=== PATIENT | female | born 1955 | race Caucasian/White ===

== ENCOUNTER 2018-06-03 13:57 | Emergency (ER) | payer OTHER ==
[2018-06-03] MEDS ORDERED: Acetaminophen TAB* 325 MG PO ONE (16:59)
--- NOTE | 2018-06-03 17:08 | RAD ---
Indication: Right knee injury. 2 views of the right knee demonstrates joint effusion. No obvious fracture is noted. Patella is intact. IMPRESSION: Joint effusion. No fracture is noted.
--- NOTE | 2018-06-03 17:08 | ED ---
Lower Extremity - HPI Summary HPI Summary: 62-year-old female presents with right knee injury today. States that she was with her on the floor and got caught in some cords and twisted her right knee. She also states she landed on her left shoulder. She states she is full range of motion of her left shoulder. No pain besides the right knee. States she is only pain when she ambulates. medial aspect of her right knee. No previous fracture to the area. Has not taking anything for pain. No numbness or tingling. - History of Current Complaint Chief Complaint: EDExtremityLower Stated Complaint: RT KNEE INJURY Time Seen by Provider: 06/03/18 16:37 Pain Intensity: 3 - Allergies/Home Medications Allergies/Adverse Reactions: Allergies Allergy/AdvReac Type Severity Reaction Status Date / Time oxycodone [From Percocet] AdvReac GI Upset Verified 06/03/18 17:14 PMH/Surg Hx/FS Hx/Imm Hx Endocrine/Hematology History: Denies: Hx Anticoagulant Therapy Cardiovascular History: Denies: Hx Pacemaker/ICD Infectious Disease History: No Infectious Disease History: Denies: Traveled Outside the [place] in Last 30 Days - Family History Known Family History: Negative: Diabetes - Social History Substance Use Type: Reports: None Smoking Status (MU): Never Smoked Tobacco Review of Systems Negative: Fever Negative: Chest Pain Negative: Shortness Of Breath Positive: Myalgia - right knee pain All Other Systems Reviewed And Are Negative: Yes Physical Exam Triage Information Reviewed: Yes Vital Signs On Initial Exam: Initial Vitals Temp Pulse Resp BP Pulse Ox 98.5 F 74 14 102/85 96 06/03/18 14:23 06/03/18 14:23 06/03/18 14:23 06/03/18 14:23 06/03/18 14:23 Vital Signs Reviewed: Yes Appearance: Positive: Well-Appearing Skin: Positive: Warm, Dry Head/Face: Positive: Normal Head/Face Inspection Eyes: Positive: Normal, Conjunctiva Clear Respiratory/Lung Sounds: Positive: Clear to Auscultation, Breath Sounds Present Cardiovascular: Positive: Normal, RRR Musculoskeletal: Positive: Strength/ROM Intact - right knee, Other - tenderness right knee, good pulses, neg ballotment, neg anterior drawer and bruno. Negative: Edema Right Neurological: Positive: Normal Psychiatric: Positive: Normal Diagnostics - Vital Signs Vital Signs Temp Pulse Resp BP Pulse Ox 06/03/18 14:23 98.5 F 74 14 102/85 96 - Laboratory Lab Statement: Any lab studies that have been ordered have been reviewed, and results considered in the medical decision making process. - Radiology knee Radiology Interpretation Completed By: Radiologist Summary of Radiographic Findings: IMPRESSION: Joint effusion. No fracture is noted. Lower Extremity Course/Dx - Course Course Of Treatment: 62-year-old female presents with right knee injury today. States that she was with her on the floor and got caught in some cords and twisted her right knee. She also states she landed on her left shoulder. She states she is full range of motion of her left shoulder. No pain besides the right knee. States she is only pain when she ambulates. medial aspect of her right knee. No previous fracture to the area. Has not taking anything for pain. No numbness or tingling. On exam tenderness over the medial aspect of right knee. Neurovascular intact. X-ray just shows joint effusion. Told to treat with ice. Told that does not improve to follow-up with orthopedic. Patient understands agrees with plan. - Diagnoses Differential Diagnosis/HQI/PQRI: Positive: Fracture (Closed), Sprain, Strain Provider Diagnoses: Right knee injury Discharge - Sign-Out/Discharge Documenting (check all that apply): Patient Departure - Discharge Plan Condition: Good Disposition: HOME Patient Education Materials: R.I.C.E. Treatment (ED) Referrals: Stephany Soria [Primary Care Provider] - Richard Melton MD [Medical Doctor] - Additional Instructions: Take Tylenol every 6 hours as needed for pain Apply ice, rest, elevate Follow up with ortho if no improvement Return to ED if develop any new or worsening symptoms - Billing Disposition and Condition Condition: GOOD Disposition: Home
[2018-06-03 17:54] VITALS: BP 121/56
== END 2018-06-03 17:52 | disposition home or self-care (01) ==
LOC: ED 13:57
DX: S89.91XA Unspecified injury of right lower leg, initial encounter (principal); Y92.9 Unspecified place or not applicable
CPT/HCPCS: 99281; A9270-GY

== ENCOUNTER 2020-08-31 09:33 | Inpatient (IN) ==
[~2020-08-31 09:33] MED LIST: Buffered Lidocaine 1% SYRIN 1 ml INTRADERM ONE; Lactated Ringers 1000 ml BAG 1,000 ML IV SCH
[2020-08-31] MEDS ORDERED: Heparin 5000 UNITS/ML 1 mL VIAL ONE (09:46)
[2020-08-31] MEDS ORDERED: ceFAZolin 2 GM PREMIX 2 GM/50 ML BAG ONE (09:46)
[2020-08-31] MEDS ORDERED: fentaNYL 100 mcg/2 ml 50 MCG/ML VIAL ONE ×2 (10:54→15:56)
[2020-08-31] MEDS ORDERED: Midazolam 2 mg/2 ml VIAL 1 mg/ml 2 ml VIAL (2 mg) ONE (10:55)
[2020-08-31] MEDS ORDERED: Rocuronium 50 mg VIAL 10 mg/ml 5 ml VIAL (50 mg) ONE ×2 (10:55→13:57)
[2020-08-31] MEDS ORDERED: Bupivacaine 0.25% SDV 30 ML ONE (11:18)
[2020-08-31] MEDS ORDERED: Lidocaine 2% PF 5 ML VIAL ONE (11:34)
[2020-08-31] MEDS ORDERED: Metoclopramide 5 MG/ML VIAL (10 mg) ONE (11:34)
[2020-08-31] MEDS ORDERED: Dexamethasone IV 4 MG/ML VIAL 1 ml VIAL ONE (11:34)
[2020-08-31] MEDS ORDERED: Ondansetron 4 mg VIAL 2 MG/ML 2 ml VIAL ONE (11:34)
[2020-08-31] MEDS ORDERED: Propofol 10 MG/ML 20 ML BTL ONE (11:34)
[2020-08-31] MEDS ORDERED: HYDROmorphone 1 MG/1 ML SYRINGE ONE ×3 (11:35→19:57)
[2020-08-31] MEDS ORDERED: DiMENhydriNATE IV 50 mg/ml 1 ml VIAL IV PUSH PRN (11:57)
[2020-08-31] MEDS ORDERED: HYDROmorphone 1 MG/1 ML SYRINGE IV PRN (11:57)
[2020-08-31] MEDS ORDERED: Naloxone 0.4 mg VIAL 0.4 mg/ml 1 ml VIAL IV PRN (11:57)
[2020-08-31] MEDS ORDERED: Ondansetron 4 mg VIAL 2 MG/ML 2 ml VIAL IV PRN (11:57)
[2020-08-31] MEDS ORDERED: Acetaminophen IV 1 GM/100ML 1,000 MG/100 ML VIAL IVPB ONE (11:57)
[2020-08-31] MEDS ORDERED: Levalbuterol 1.25MG/0.5ML NEB.SOL INH PRN (11:57)
[2020-08-31] MEDS ORDERED: Sugammadex 500 MG/5 ML 5 ml VIAL IV PUSH ONE (15:09)
[2020-08-31] MEDS ORDERED: HYDROmorphone 0.5 MG/0.5 ML SYRINGE IV SLOW PU PRN (15:35)
[2020-08-31] MEDS ORDERED: Acetaminophen IV 1 GM/100ML 100 ML ONE (15:56)
[2020-08-31] MEDS: fentaNYL 100 mcg/2 ml 50 MCG/ML VIAL IV PRN ×3 (15:57→16:54)
[2020-08-31] MEDS: Lactated Ringers 1000 ml BAG 1,000 ML IV SCH (18:26)
[2020-08-31] MEDS: Heparin 5000 UNITS/ML 1 mL VIAL SUBCUT SCH (23:01)
[2020-08-31] MEDS: HYDROmorphone 1 MG/1 ML SYRINGE IV SLOW PU PRN (23:02)
[2020-09-01] MEDS: HYDROmorphone 1 MG/1 ML SYRINGE IV SLOW PU PRN ×3 (02:06→14:21)
[2020-09-01 04:22] LABS: ABS Lymphocytes 0.8 10^3/ul (1.0-4.8); ABS Monocytes 1.4 10^3/ul (0-0.8); ABS Neutrophils 17.8 10^3/ul (1.5-7.7); Hematocrit 41 % (35-47); Hemoglobin 14.1 g/dL (12.0-16.0); Mean Corpuscular HGB Conc 34 g/dL (31-36); Mean Corpuscular Hemoglobin 32 pg (27-31); Mean Corpuscular Volume 94 fL (80-97); Mean Platelet Volume 6.6 fL (7.4-10.4); Platelet Count 356 10^3/uL (150-450); Red Blood Count 4.41 10^6 /uL (3.70-4.87); Red Cell Distribution Width 13 % (10-15); White Blood Count 20.1 10^3/uL (3.5-10.8)
[2020-09-01 04:37] LABS: Albumin 4.3 g/dL (3.2-5.2); Albumin/Globulin Ratio 1.5 (1-3); BUN/Creatinine Ratio 23.4 (8-20); C Reactive Protein 72.88 mg/L (<8.01); Calcium 9.1 mg/dL (8.6-10.3); EGFR Non-African American 60.3 (>60); Globulin 2.8 g/dL (2-4); Potassium 4.6 mmol/L (3.5-5.0); Total Bilirubin 0.6 mg/dL (0.2-1.0); Total Protein 7.1 g/dL (6.4-8.9)
[2020-09-01] MEDS: Lactated Ringers 1000 ml BAG 1,000 ML IV SCH ×2 (04:39→22:14)
[2020-09-01] MEDS: Heparin 5000 UNITS/ML 1 mL VIAL SUBCUT SCH ×3 (07:46→21:01)
[2020-09-01 19:09] LABS: ABS Lymphocytes 0.5 10^3/ul (1.0-4.8); ABS Monocytes 0.5 10^3/ul (0-0.8); ABS Neutrophils 11.6 10^3/ul (1.5-7.7); Eosinophil % 0.1 %; Hematocrit 41 % (35-47); Hemoglobin 13.7 g/dL (12.0-16.0); Lymphocyte % 4.2 %; Mean Corpuscular HGB Conc 34 g/dL (31-36); Mean Corpuscular Hemoglobin 32 pg (27-31); Mean Corpuscular Volume 94 fL (80-97); Mean Platelet Volume 6.7 fL (7.4-10.4); Platelet Count 319 10^3/uL (150-450); Red Blood Count 4.34 10^6 /uL (3.70-4.87); Red Cell Distribution Width 13 % (10-15); White Blood Count 12.7 10^3/uL (3.5-10.8)
[2020-09-01 19:27] LABS: BUN/Creatinine Ratio 24.4 (8-20); Calcium 8.8 mg/dL (8.6-10.3); EGFR African American 80.9 (>60); EGFR Non-African American 66.9 (>60); Potassium 3.8 mmol/L (3.5-5.0)
[2020-09-01] MEDS ORDERED: NS 0.9% 500 ml BAG 500 ML IV ONE (20:32)
[2020-09-02] MEDS: Ondansetron 4 mg VIAL 2 MG/ML 2 ml VIAL IV PRN (05:01)
[2020-09-02] MEDS: HYDROmorphone 1 MG/1 ML SYRINGE IV SLOW PU PRN ×2 (05:01→08:08)
[2020-09-02] MEDS: Heparin 5000 UNITS/ML 1 mL VIAL SUBCUT SCH ×4 (05:54→23:27)
[2020-09-02] MEDS: Lactated Ringers 1000 ml BAG 1,000 ML IV SCH ×3 (05:54→23:52)
[2020-09-02 06:02] LABS: ABS Lymphocytes 1.4 10^3/ul (1.0-4.8); ABS Monocytes 0.7 10^3/ul (0-0.8); ABS Neutrophils 13.5 10^3/ul (1.5-7.7); Hematocrit 40 % (35-47); Hemoglobin 13.3 g/dL (12.0-16.0); Mean Corpuscular HGB Conc 33 g/dL (31-36); Mean Corpuscular Hemoglobin 32 pg (27-31); Mean Corpuscular Volume 95 fL (80-97); Mean Platelet Volume 7.1 fL (7.4-10.4); Platelet Count 307 10^3/uL (150-450); Red Blood Count 4.21 10^6 /uL (3.70-4.87); Red Cell Distribution Width 13 % (10-15); White Blood Count 15.7 10^3/uL (3.5-10.8)
[2020-09-02 08:00] LABS: Albumin 3.6 g/dL (3.2-5.2); Albumin/Globulin Ratio 1.4 (1-3); EGFR African American 94.7 (>60); EGFR Non-African American 78.3 (>60); Globulin 2.5 g/dL (2-4); Potassium 4.1 mmol/L (3.5-5.0); Total Bilirubin 1.1 mg/dL (0.2-1.0); Total Protein 6.1 g/dL (6.4-8.9)
[2020-09-02] MEDS ORDERED: HYDROmorphone 0.5 MG/0.5 ML SYRINGE IV SLOW PU PRN (09:25)
[2020-09-02] MEDS: Acetaminophen IV 1 GM/100ML 100 ML IVPB SCH ×2 (14:32→21:49)
[2020-09-02 15:09] LABS: Urine Appearance Turbid; Urine Bilirubin Negative (Negative); Urine Blood Negative (Negative); Urine Color Amber; Urine Glucose Negative (Negative); Urine Ketones Negative (Negative); Urine Nitrite Negative (Negative); Urine Protein 1+(30 mg/dL) (Negative); Urine Specific Gravity 1.025 (1.010-1.030); Urine Urobilinogen Negative (Negative)
[2020-09-02 15:22] LABS: Urine Bacteria Absent (Absent); Urine Red Blood Cell Trace(0-2/hpf) (Absent); Urine Squamous Epithelial Cell Present (Absent); Urine White Blood Cell Trace(0-5/hpf) (Absent)
[2020-09-02] MEDS ORDERED: Iohexol 350 (CONTRAST) 500 ML MDV IV ONE (18:13)
[2020-09-02 20:28] LABS: ABS Basophils 0.1 10^3/ul (0-0.2); ABS Lymphocytes 0.5 10^3/ul (1.0-4.8); ABS Monocytes 0.6 10^3/ul (0-0.8); ABS Neutrophils 11.8 10^3/ul (1.5-7.7); Eosinophil % 0.2 %; Hematocrit 37 % (35-47); Hemoglobin 12.7 g/dL (12.0-16.0); Lymphocyte % 4.2 %; Mean Corpuscular HGB Conc 34 g/dL (31-36); Mean Corpuscular Hemoglobin 32 pg (27-31); Mean Corpuscular Volume 93 fL (80-97); Mean Platelet Volume 6.8 fL (7.4-10.4); Platelet Count 300 10^3/uL (150-450); Red Blood Count 4.03 10^6 /uL (3.70-4.87); Red Cell Distribution Width 13 % (10-15)
[2020-09-02 20:40] LABS: Albumin 3.2 g/dL (3.2-5.2); Albumin/Globulin Ratio 1.2 (1-3); BUN/Creatinine Ratio 21.2 (8-20); Calcium 8.7 mg/dL (8.6-10.3); EGFR Non-African American 67.8 (>60); Globulin 2.7 g/dL (2-4); Potassium 4.3 mmol/L (3.5-5.0); Total Bilirubin 1.2 mg/dL (0.2-1.0); Total Protein 5.9 g/dL (6.4-8.9)
[2020-09-02] MEDS ORDERED: Piperacillin/Tazobac ADVAN 3.375 GM in NS 0.9% 100 ml BAG 100 ML IVPB ONE (20:54)
[2020-09-02] MEDS ORDERED: Lactated Ringers 1000 ml BAG 1,000 ML IV ONE (20:55)
[2020-09-02] MEDS ORDERED: Zosyn per Pharmacy NOTE FOLLOW UP SCH (21:00)
[2020-09-03] MEDS ORDERED: Midazolam 5 mg/5 ml VIAL 1 mg/ml 5 ml VIAL (5 mg) ONE (00:45)
[2020-09-03] MEDS ORDERED: fentaNYL 250 mcg/5 ml 50 MCG/ML 5 ml VIAL (250 MCG) ONE ×2 (00:45→20:53)
[2020-09-03] MEDS ORDERED: Rocuronium 50 mg VIAL 10 mg/ml 5 ml VIAL (50 mg) ONE ×2 (00:47→02:46)
[2020-09-03] MEDS ORDERED: Bupivacaine 0.25% SDV 30 ML ONE (00:49)
[2020-09-03] MEDS ORDERED: ZOSYN 3.375 GM Q8H per EXTENDED INFUSION IV SCH (01:00)
[2020-09-03] MEDS ORDERED: Ketamine HCL 50 mg/ml 10 ml VIAL (500 MG) ONE (02:08)
[2020-09-03] MEDS ORDERED: Phenylephrine 40 mcg/mL 10mL (400mcg) SYRINGE ONE (02:36)
[2020-09-03] MEDS ORDERED: Lidocaine 2% PF 5 ML VIAL ONE (02:36)
[2020-09-03] MEDS ORDERED: Propofol 10 MG/ML 20 ML BTL ONE (02:36)
[2020-09-03] MEDS ORDERED: Succinylcholine 200 mg VIAL 20 mg/ml 10 ml VIAL (200 mg) ONE (02:36)
[2020-09-03] MEDS ORDERED: EPHEDrine (Pressors) 50 MG/ML VIAL ONE (02:36)
[2020-09-03] MEDS ORDERED: Dexamethasone IV 4 MG/ML VIAL 1 ml VIAL ONE (02:36)
[2020-09-03] MEDS ORDERED: Ondansetron 4 mg VIAL 2 MG/ML 2 ml VIAL ONE (02:36)
[2020-09-03] MEDS ORDERED: Phenylephrine IV 10 MG/ML 1 ml VIAL ONE (02:36)
[2020-09-03] MEDS ORDERED: Propofol 10 mg/ml 100 ML BTL 100 ML ONE (03:43)
[2020-09-03] MEDS: Propofol 10 mg/ml 100 ML BTL 100 ML IV SCH ×4 (04:28→17:53)
[2020-09-03] MEDS: Propofol* 20 ML VIAL - FOR IV LINE PRIMING ONLY SCH ×2 (04:33→17:53)
[2020-09-03] MEDS: Lactated Ringers 1000 ml BAG 1,000 ML IV SCH ×3 (04:35→21:52)
[2020-09-03] MEDS: Chlorhexidine MOUTHWASH 0.12% 15 ML UDC SWISH SPIT SCH ×6 (04:39→22:49)
[2020-09-03] MEDS ORDERED: Norepinephrine 16MCG/ML IVPRE 4,000 MCG/250 ML BAG IV ONE (05:23)
[2020-09-03 05:53] LABS: ABS Lymphocytes 0.5 10^3/ul (1.0-4.8); ABS Monocytes 0.4 10^3/ul (0-0.8); ABS Neutrophils 8.8 10^3/ul (1.5-7.7); Eosinophil % 0.2 %; Hematocrit 37 % (35-47); Hemoglobin 12.4 g/dL (12.0-16.0); Lymphocyte % 4.7 %; Mean Corpuscular HGB Conc 33 g/dL (31-36); Mean Corpuscular Hemoglobin 32 pg (27-31); Mean Corpuscular Volume 95 fL (80-97); Mean Platelet Volume 7.1 fL (7.4-10.4); Platelet Count 267 10^3/uL (150-450); Red Blood Count 3.91 10^6 /uL (3.70-4.87); Red Cell Distribution Width 14 % (10-15); White Blood Count 9.7 10^3/uL (3.5-10.8)
[2020-09-03 06:00] LABS: ALT 157 U/L (7-52); Albumin 2.8 g/dL (3.2-5.2); Albumin/Globulin Ratio 1.4 (1-3); Alkaline Phosphatase 77 U/L (34-104); BUN/Creatinine Ratio 18.9 (8-20); Blood Urea Nitrogen 17 mg/dL (6-24); CO2 Carbon Dioxide 20 mmol/L (22-32); Calcium 7.8 mg/dL (8.6-10.3); Chloride 104 mmol/L (101-111); EGFR African American 76.8 (>60); EGFR Non-African American 63.4 (>60); Glucose 152 mg/dL (70-100); Sodium 134 mmol/L (135-145); Total Protein 4.8 g/dL (6.4-8.9)
[2020-09-03 06:03] LABS: Anion Gap 10 mmol/L (2-11)
[2020-09-03] MEDS: ZOSYN 3.375 GM Q8H per EXTENDED INFUSION IV SCH ×3 (06:13→22:49)
[2020-09-03] MEDS: Acetaminophen IV 1 GM/100ML 100 ML IVPB SCH (06:18)
[2020-09-03] MEDS: Heparin 5000 UNITS/ML 1 mL VIAL SUBCUT SCH ×3 (06:18→20:00)
[2020-09-03] MEDS: Famotidine IV 10 MG/ML 2 ml VIAL (20 mg) IV SLOW PU SCH ×2 (08:51→19:31)
[2020-09-03 09:04] LABS: Potassium Redraw 3.9 mmol/L (3.5-5.0)
[2020-09-03] MEDS ORDERED: Norepinephrine 16MCG/ML IVPRE 4,000 MCG/250 ML BAG IV SCH (10:00)
[2020-09-03] MEDS: Norepinephrine 16MCG/ML IVPRE 4,000 MCG/250 ML BAG IV SCH (10:31)
[2020-09-03] MEDS: fentaNYL 100 mcg/2 ml 50 MCG/ML VIAL IV SLOW PU PRN ×3 (10:32→19:29)
[2020-09-03] MEDS: fentaNYL INFUSION 50 MCG/ML 2,500 MCG/50 ML BAG IV SCH (21:00)
[2020-09-03] MEDS ORDERED: fentaNYL 250 mcg/5 ml 50 MCG/ML 5 ml VIAL (250 MCG) IV ONE (23:03)
[2020-09-04] MEDS: Chlorhexidine MOUTHWASH 0.12% 15 ML UDC SWISH SPIT SCH ×6 (02:07→21:08)
[2020-09-04] MEDS: Propofol* 20 ML VIAL - FOR IV LINE PRIMING ONLY SCH ×2 (02:30→15:18)
[2020-09-04 04:17] LABS: Hematocrit 32 % (35-47); Hemoglobin 10.5 g/dL (12.0-16.0); Mean Corpuscular HGB Conc 33 g/dL (31-36); Mean Corpuscular Hemoglobin 31 pg (27-31); Mean Corpuscular Volume 94 fL (80-97); Mean Platelet Volume 6.9 fL (7.4-10.4); Platelet Count 283 10^3/uL (150-450); Red Blood Count 3.35 10^6 /uL (3.70-4.87); Red Cell Distribution Width 14 % (10-15); White Blood Count 12.7 10^3/uL (3.5-10.8)
[2020-09-04 04:36] LABS: Albumin 2.4 g/dL (3.2-5.2); BUN/Creatinine Ratio 20.6 (8-20); EGFR African American 106.1 (>60); EGFR Non-African American 87.7 (>60); Globulin 2.4 g/dL (2-4); Potassium 3.5 mmol/L (3.5-5.0); Total Protein 4.8 g/dL (6.4-8.9)
[2020-09-04 04:44] LABS: ABS Lymphocytes 0.8 10^3/ul (1.0-4.8); ABS Monocytes 0.4 10^3/ul (0-0.8); ABS Neutrophils 11.4 10^3/ul (1.5-7.7); Eosinophil % 0.3 %; Lymphocyte % 6.6 %
[2020-09-04] MEDS: ZOSYN 3.375 GM Q8H per EXTENDED INFUSION IV SCH ×3 (04:59→21:02)
[2020-09-04] MEDS: Heparin 5000 UNITS/ML 1 mL VIAL SUBCUT SCH ×3 (05:00→21:08)
[2020-09-04] MEDS: Propofol 10 mg/ml 100 ML BTL 100 ML IV SCH ×2 (07:51→13:26)
[2020-09-04] MEDS: Famotidine IV 10 MG/ML 2 ml VIAL (20 mg) IV SLOW PU SCH ×2 (07:57→19:26)
[2020-09-04] MEDS: Norepinephrine 16MCG/ML IVPRE 4,000 MCG/250 ML BAG IV SCH (11:02)
[2020-09-04] MEDS ORDERED: Furosemide 40 mg/4 ml IV VIAL IV SLOW PU ONE ×2 (12:19→16:02)
[2020-09-04] MEDS: Lactated Ringers 1000 ml BAG 1,000 ML IV SCH ×2 (12:34→16:16)
[2020-09-05] MEDS: Chlorhexidine MOUTHWASH 0.12% 15 ML UDC SWISH SPIT SCH ×6 (00:33→22:04)
[2020-09-05 03:34] LABS: Albumin 2.3 g/dL (3.2-5.2); Albumin/Globulin Ratio 0.9 (1-3); BUN/Creatinine Ratio 21.8 (8-20); Calcium 7.7 mg/dL (8.6-10.3); EGFR African American 90.6 (>60); EGFR Non-African American 74.8 (>60); Globulin 2.5 g/dL (2-4); Total Bilirubin 0.8 mg/dL (0.2-1.0); Total Protein 4.8 g/dL (6.4-8.9)
[2020-09-05] MEDS: Propofol* 20 ML VIAL - FOR IV LINE PRIMING ONLY SCH ×2 (04:13→16:49)
[2020-09-05] MEDS: ZOSYN 3.375 GM Q8H per EXTENDED INFUSION IV SCH ×3 (04:41→20:59)
[2020-09-05] MEDS: Heparin 5000 UNITS/ML 1 mL VIAL SUBCUT SCH ×3 (04:42→20:59)
[2020-09-05] MEDS ORDERED: Potassium Chlor 20 meq TAB.ER PO SCH (05:15)
[2020-09-05] MEDS: Potassium Chloride LIQUID 20 MEQ/15 ML LIQUID PO SCH ×3 (05:19→05:59)
[2020-09-05] MEDS ORDERED: fentaNYL 250 mcg/5 ml 50 MCG/ML 5 ml VIAL (250 MCG) ONE (07:26)
[2020-09-05] MEDS ORDERED: Midazolam 5 mg/5 ml VIAL 1 mg/ml 5 ml VIAL (5 mg) ONE (07:26)
[2020-09-05] MEDS ORDERED: Bupivacaine 0.25% SDV 30 ML ONE (07:26)
[2020-09-05] MEDS ORDERED: Rocuronium 50 mg VIAL 10 mg/ml 5 ml VIAL (50 mg) ONE ×2 (07:27→09:18)
[2020-09-05] MEDS: KCL 20 MEQ/100 ML IVPREMIX 20 MEQ/100 ML BAG IV SCH ×3 (07:28→14:13)
[2020-09-05] MEDS ORDERED: Phenylephrine IV 10 MG/ML 1 ml VIAL ONE (08:00)
[2020-09-05] MEDS: Famotidine IV 10 MG/ML 2 ml VIAL (20 mg) IV SLOW PU SCH ×2 (08:43→19:42)
[2020-09-05] MEDS ORDERED: fentaNYL 100 mcg/2 ml 50 MCG/ML VIAL ONE ×3 (09:16→10:39)
[2020-09-05 09:21] LABS: Magnesium 1.8 mg/dL (1.9-2.7); Phosphorus 2.8 mg/dL (2.5-5.0)
[2020-09-05] MEDS ORDERED: Magnesium Sulfate 2 gm BAG 2 GM/50 ML BAG IVPB ONE (11:25)
[2020-09-05] MEDS: fentaNYL INFUSION 50 MCG/ML 2,500 MCG/50 ML BAG IV SCH (14:33)
[2020-09-05] MEDS: Propofol 10 mg/ml 100 ML BTL 100 ML IV SCH (16:55)
[2020-09-06] MEDS: Chlorhexidine MOUTHWASH 0.12% 15 ML UDC SWISH SPIT SCH ×3 (02:47→10:51)
[2020-09-06] MEDS: Propofol* 20 ML VIAL - FOR IV LINE PRIMING ONLY SCH (02:48)
[2020-09-06 03:55] LABS: Hematocrit 28 % (35-47); Hemoglobin 9.4 g/dL (12.0-16.0); Mean Corpuscular HGB Conc 34 g/dL (31-36); Mean Corpuscular Hemoglobin 31 pg (27-31); Mean Corpuscular Volume 93 fL (80-97); Mean Platelet Volume 6.9 fL (7.4-10.4); Platelet Count 256 10^3/uL (150-450); Red Blood Count 3.02 10^6 /uL (3.70-4.87); Red Cell Distribution Width 14 % (10-15); White Blood Count 14.4 10^3/uL (3.5-10.8)
[2020-09-06 04:02] LABS: INR 1.19 (0.82-1.09)
[2020-09-06 04:11] LABS: BUN/Creatinine Ratio 24.2 (8-20); Calcium 7.6 mg/dL (8.6-10.3); EGFR Non-African American 97.5 (>60); Magnesium 2.4 mg/dL (1.9-2.7); Phosphorus 3.1 mg/dL (2.5-5.0); Potassium 3.5 mmol/L (3.5-5.0)
[2020-09-06] MEDS: ZOSYN 3.375 GM Q8H per EXTENDED INFUSION IV SCH ×3 (04:41→21:09)
[2020-09-06] MEDS: Heparin 5000 UNITS/ML 1 mL VIAL SUBCUT SCH ×3 (04:42→21:09)
[2020-09-06] MEDS: Lactated Ringers 1000 ml BAG 1,000 ML IV SCH (07:00)
[2020-09-06] MEDS: Famotidine IV 10 MG/ML 2 ml VIAL (20 mg) IV SLOW PU SCH (08:38)
[2020-09-06] MEDS ORDERED: Propofol 10 mg/ml 100 ML BTL 100 ML ONE (22:27)
[2020-09-07 04:42] LABS: Hematocrit 26 % (35-47); Hemoglobin 8.7 g/dL (12.0-16.0); Mean Corpuscular HGB Conc 33 g/dL (31-36); Mean Corpuscular Hemoglobin 31 pg (27-31); Mean Corpuscular Volume 93 fL (80-97); Mean Platelet Volume 6.8 fL (7.4-10.4); Platelet Count 270 10^3/uL (150-450); Red Blood Count 2.84 10^6 /uL (3.70-4.87); Red Cell Distribution Width 14 % (10-15); White Blood Count 17.1 10^3/uL (3.5-10.8)
[2020-09-07] MEDS: Lactated Ringers 1000 ml BAG 1,000 ML IV SCH (04:56)
[2020-09-07 05:10] LABS: BUN/Creatinine Ratio 31.6 (8-20); Calcium 7.7 mg/dL (8.6-10.3); EGFR Non-African American 107.5 (>60); Magnesium 2.5 mg/dL (1.9-2.7); Phosphorus 2.7 mg/dL (2.5-5.0); Potassium 3.5 mmol/L (3.5-5.0)
[2020-09-07] MEDS: ZOSYN 3.375 GM Q8H per EXTENDED INFUSION IV SCH ×3 (05:50→21:43)
[2020-09-07] MEDS: Heparin 5000 UNITS/ML 1 mL VIAL SUBCUT SCH ×3 (05:50→21:44)
[2020-09-08] MEDS: ZOSYN 3.375 GM Q8H per EXTENDED INFUSION IV SCH ×3 (06:04→23:35)
[2020-09-08] MEDS: Heparin 5000 UNITS/ML 1 mL VIAL SUBCUT SCH ×3 (06:04→21:53)
[2020-09-08 06:22] LABS: Hematocrit 25 % (35-47); Hemoglobin 8.5 g/dL (12.0-16.0); Mean Corpuscular HGB Conc 34 g/dL (31-36); Mean Corpuscular Hemoglobin 31 pg (27-31); Mean Corpuscular Volume 92 fL (80-97); Mean Platelet Volume 6.7 fL (7.4-10.4); Platelet Count 322 10^3/uL (150-450); Red Blood Count 2.74 10^6 /uL (3.70-4.87); Red Cell Distribution Width 14 % (10-15); White Blood Count 19.8 10^3/uL (3.5-10.8)
[2020-09-08 06:44] LABS: BUN/Creatinine Ratio 28.6 (8-20); Calcium 7.6 mg/dL (8.6-10.3); EGFR African American 154.8 (>60); Magnesium 2.1 mg/dL (1.9-2.7); Phosphorus 2.6 mg/dL (2.5-5.0); Potassium 3.3 mmol/L (3.5-5.0)
[2020-09-08 11:30] LABS: C Reactive Protein 207.47 mg/L (<8.01)
[2020-09-08] MEDS ORDERED: NS 0.9% 100 ml BAG 100 ML ONE (21:10)
[2020-09-08] MEDS ORDERED: Iohexol 300 (CONTRAST) 10 ML SDV IV ONE (21:11)
[2020-09-09] MEDS ORDERED: NS 0.9% 500 ml BAG 500 ML IV ONE (00:02)
[2020-09-09] MEDS ORDERED: Vancomycin 2,000 MG in NS 0.9% 250 ml 250 ML IVPB ONE (00:10)
[2020-09-09] MEDS ORDERED: Vancomycin per Pharmacy 1 EA NOTE FOLLOW UP SCH (01:00)
[2020-09-09] MEDS ORDERED: Vancomycin 2,000 MG in NS 0.9% 500 ml BAG 500 ML IVPB ONE (01:10)
[2020-09-09] MEDS ORDERED: Iohexol 300 (CONTRAST) 10 ML SDV IV ONE (01:32)
[2020-09-09] MEDS: Cefepime 2 GM in Dextrose 2 GM/50 ML BAG IV SCH ×3 (01:43→17:05)
[2020-09-09] MEDS: metroNIDAZOLE IV 500 MG/100ML 500 MG/100 ML BAG IVPB SCH ×4 (01:44→18:36)
[2020-09-09] MEDS: Heparin 5000 UNITS/ML 1 mL VIAL SUBCUT SCH ×3 (06:20→21:59)
[2020-09-09 06:52] LABS: Hematocrit 26 % (35-47); Hemoglobin 8.8 g/dL (12.0-16.0); Mean Corpuscular HGB Conc 34 g/dL (31-36); Mean Corpuscular Hemoglobin 31 pg (27-31); Mean Corpuscular Volume 92 fL (80-97); Mean Platelet Volume 6.8 fL (7.4-10.4); Platelet Count 355 10^3/uL (150-450); Red Blood Count 2.83 10^6 /uL (3.70-4.87); Red Cell Distribution Width 13 % (10-15); White Blood Count 21.4 10^3/uL (3.5-10.8)
[2020-09-09 07:10] LABS: Albumin 2.5 g/dL (3.2-5.2); Albumin/Globulin Ratio 0.9 (1-3); BUN/Creatinine Ratio 19.1 (8-20); C Reactive Protein 175.72 mg/L (<8.01); Calcium 7.5 mg/dL (8.6-10.3); EGFR African American 162.5 (>60); EGFR Non-African American 134.3 (>60); Globulin 2.8 g/dL (2-4); Potassium 3.1 mmol/L (3.5-5.0); Total Bilirubin 0.7 mg/dL (0.2-1.0); Total Protein 5.3 g/dL (6.4-8.9)
[2020-09-09 11:17] LABS: ABS Basophils 0.1 10^3/ul (0-0.2); ABS Eosinophils 0.2 10^3/ul (0-0.6); ABS Lymphocytes 1.5 10^3/ul (1.0-4.8); ABS Monocytes 0.8 10^3/ul (0-0.8); ABS Neutrophils 18.7 10^3/ul (1.5-7.7); Eosinophil % 1.1 %; Lymphocyte % 7.1 %
[2020-09-09 11:28] LABS: Magnesium 1.9 mg/dL (1.9-2.7)
[2020-09-09] MEDS: Vancomycin 1,250 MG in NS 0.9% 250 ml 250 ML IVPB SCH ×2 (11:40→21:11)
[2020-09-09] MEDS: KCL 20 MEQ/100 ML IVPREMIX 20 MEQ/100 ML BAG IV SCH ×3 (11:40→17:43)
[2020-09-09] MEDS ORDERED: fentaNYL 100 mcg/2 ml 50 MCG/ML VIAL ONE (12:55)
[2020-09-09] MEDS ORDERED: Polyethylene Glycol 3350 17 GM PACKET PO ONE (16:20)
[2020-09-10] MEDS: metroNIDAZOLE IV 500 MG/100ML 500 MG/100 ML BAG IVPB SCH ×3 (01:54→18:05)
[2020-09-10] MEDS: Cefepime 2 GM in Dextrose 2 GM/50 ML BAG IV SCH ×3 (01:54→17:05)
[2020-09-10] MEDS: Vancomycin 1,250 MG in NS 0.9% 250 ml 250 ML IVPB SCH ×2 (03:46→12:25)
[2020-09-10] MEDS: Heparin 5000 UNITS/ML 1 mL VIAL SUBCUT SCH ×3 (05:41→21:56)
[2020-09-10 06:37] LABS: Hematocrit 24 % (35-47); Hemoglobin 7.9 g/dL (12.0-16.0); Mean Corpuscular HGB Conc 33 g/dL (31-36); Mean Corpuscular Hemoglobin 31 pg (27-31); Mean Corpuscular Volume 93 fL (80-97); Mean Platelet Volume 7.1 fL (7.4-10.4); Platelet Count 380 10^3/uL (150-450); Red Blood Count 2.55 10^6 /uL (3.70-4.87); Red Cell Distribution Width 14 % (10-15); White Blood Count 18.9 10^3/uL (3.5-10.8)
[2020-09-10 07:00] LABS: BUN/Creatinine Ratio 18.2 (8-20); Calcium 7.3 mg/dL (8.6-10.3); EGFR African American 175.3 (>60); EGFR Non-African American 144.9 (>60); Potassium 3.2 mmol/L (3.5-5.0)
[2020-09-10] MEDS ORDERED: Potassium Chloride LIQUID 20 MEQ/15 ML LIQUID PO SCH (09:00)
[2020-09-10] MEDS: KCL 20 MEQ/100 ML IVPREMIX 20 MEQ/100 ML BAG IV SCH ×2 (09:57→17:06)
[2020-09-10 10:06] LABS: Polychromasia 2+
[2020-09-10 10:07] LABS: ABS Basophils 0.1 10^3/ul (0-0.2); ABS Eosinophils 0.2 10^3/ul (0-0.6); ABS Lymphocytes 1.3 10^3/ul (1.0-4.8); ABS Neutrophils 16.3 10^3/ul (1.5-7.7); Lymphocyte % 6.8 %
[2020-09-10] MEDS ORDERED: Vancomycin Trough Check NOTE FOLLOW UP ONE (11:00)
[2020-09-10 11:55] LABS: EGFR African American 147.9 (>60); EGFR Non-African American 122.2 (>60)
[2020-09-10] MEDS ORDERED: Furosemide 40 mg/4 ml IV VIAL IV ONE (12:54)
[2020-09-10] MEDS ORDERED: Furosemide 40 mg/4 ml IV VIAL IV SLOW PU ONE (18:00)
[2020-09-10] MEDS ORDERED: Vancomycin 1,500 MG in NS 0.9% 250 ml 250 ML IVPB ONE (20:27)
[2020-09-10] MEDS ORDERED: Vancomycin per Pharmacy 1 EA NOTE FOLLOW UP PRN (21:24)
[2020-09-10] MEDS ORDERED: NS 0.9% 1000 ml BAG 1,000 ML IV ONE (21:45)
[2020-09-11] MEDS: KCL 20 MEQ/100 ML IVPREMIX 20 MEQ/100 ML BAG IV SCH (00:08)
[2020-09-11] MEDS: Cefepime 2 GM in Dextrose 2 GM/50 ML BAG IV SCH ×3 (01:51→17:11)
[2020-09-11] MEDS: metroNIDAZOLE IV 500 MG/100ML 500 MG/100 ML BAG IVPB SCH ×4 (02:31→18:30)
[2020-09-11] MEDS ORDERED: LORazepam 2 mg VIAL 1 ml IV PUSH ONE (03:29)
[2020-09-11] MEDS ORDERED: Lorazepam PYXIS KEY PRN (03:29)
[2020-09-11 05:59] LABS: Hematocrit 26 % (35-47); Hemoglobin 8.6 g/dL (12.0-16.0); Mean Corpuscular HGB Conc 34 g/dL (31-36); Mean Corpuscular Hemoglobin 31 pg (27-31); Mean Corpuscular Volume 93 fL (80-97); Mean Platelet Volume 7.1 fL (7.4-10.4); Platelet Count 496 10^3/uL (150-450); Red Blood Count 2.76 10^6 /uL (3.70-4.87); Red Cell Distribution Width 14 % (10-15)
[2020-09-11 06:04] LABS: BUN/Creatinine Ratio 13.2 (8-20); Calcium 7.3 mg/dL (8.6-10.3); EGFR African American 141.4 (>60); EGFR Non-African American 116.9 (>60); Potassium 3.4 mmol/L (3.5-5.0)
[2020-09-11] MEDS: Heparin 5000 UNITS/ML 1 mL VIAL SUBCUT SCH ×3 (06:10→21:44)
[2020-09-11 06:43] LABS: ABS Basophils 0.1 10^3/ul (0-0.2); ABS Eosinophils 0.2 10^3/ul (0-0.6); ABS Lymphocytes 1.5 10^3/ul (1.0-4.8); ABS Monocytes 1.1 10^3/ul (0-0.8); ABS Neutrophils 17.1 10^3/ul (1.5-7.7); Lymphocyte % 7.7 %; Nucleated Red Blood Cells % 0.1; Polychromasia 1+
[2020-09-11] MEDS ORDERED: KCL 20 MEQ/100 ML IVPREMIX 20 MEQ/100 ML BAG IV ONE (07:43)
[2020-09-11 08:08] LABS: C Reactive Protein 192.46 mg/L (<8.01); Magnesium 1.8 mg/dL (1.9-2.7)
[2020-09-11] MEDS: VANCOMYCIN 1250 MG IVPB SCH ×3 (08:36→23:40)
[2020-09-11] MEDS: Potassium Chloride LIQUID 20 MEQ/15 ML LIQUID PO SCH ×2 (09:51→21:45)
[2020-09-11] MEDS ORDERED: Magnesium Sulfate 2 gm BAG 2 GM/50 ML BAG IVPB ONE (09:58)
[2020-09-11] MEDS ORDERED: Iohexol 350 (CONTRAST) 500 ML MDV IV ONE (10:16)
[2020-09-11] MEDS ORDERED: Furosemide 40 mg/4 ml IV VIAL IV ONE (15:35)
[2020-09-12] MEDS: Cefepime 2 GM in Dextrose 2 GM/50 ML BAG IV SCH ×3 (01:40→18:00)
[2020-09-12] MEDS: metroNIDAZOLE IV 500 MG/100ML 500 MG/100 ML BAG IVPB SCH ×3 (02:31→20:53)
[2020-09-12] MEDS: Heparin 5000 UNITS/ML 1 mL VIAL SUBCUT SCH ×3 (05:56→22:14)
[2020-09-12] MEDS ORDERED: Vancomycin Trough Check NOTE FOLLOW UP ONE (07:30)
[2020-09-12] MEDS: Potassium Chloride LIQUID 20 MEQ/15 ML LIQUID PO SCH ×2 (08:57→22:14)
[2020-09-12 09:19] LABS: Hematocrit 26 % (35-47); Hemoglobin 8.6 g/dL (12.0-16.0); Mean Corpuscular HGB Conc 33 g/dL (31-36); Mean Corpuscular Hemoglobin 31 pg (27-31); Mean Corpuscular Volume 92 fL (80-97); Mean Platelet Volume 6.7 fL (7.4-10.4); Platelet Count 619 10^3/uL (150-450); Red Blood Count 2.79 10^6 /uL (3.70-4.87); Red Cell Distribution Width 14 % (10-15); White Blood Count 20.6 10^3/uL (3.5-10.8)
[2020-09-12] MEDS ORDERED: Potassium Chlor 20 meq TAB.ER PO ONE (09:22)
[2020-09-12 09:42] LABS: C Reactive Protein 197.56 mg/L (<8.01); Calcium 7.6 mg/dL (8.6-10.3); EGFR African American 151.3 (>60); Magnesium 2.2 mg/dL (1.9-2.7); Potassium 3.2 mmol/L (3.5-5.0)
[2020-09-12 09:43] LABS: EGFR African American 151.3 (>60)
[2020-09-12 09:51] LABS: ABS Basophils 0.1 10^3/ul (0-0.2); ABS Eosinophils 0.1 10^3/ul (0-0.6); ABS Lymphocytes 1.4 10^3/ul (1.0-4.8); ABS Monocytes 1.7 10^3/ul (0-0.8); ABS Neutrophils 17.4 10^3/ul (1.5-7.7); Eosinophil % 0.6 %; Lymphocyte % 6.6 %
[2020-09-12 09:54] LABS: Polychromasia 1+
[2020-09-12] MEDS ORDERED: KCL 20 MEQ/100 ML IVPREMIX 20 MEQ/100 ML BAG IV SCH (10:00)
[2020-09-12 10:47] LABS: Vancomycin Trough 11.2 mcg/mL
[2020-09-12] MEDS: VANCOMYCIN 1250 MG IVPB SCH ×3 (12:27→22:10)
[2020-09-12] MEDS ORDERED: Iohexol 350 (CONTRAST) 500 ML MDV IV ONE (14:16)
[2020-09-12] MEDS: KCL 20 MEQ/100 ML IVPREMIX 20 MEQ/100 ML BAG IV SCH ×2 (15:55→20:50)
[2020-09-12] MEDS ORDERED: Furosemide 20 mg/2 ml IV VIAL IV ONE (16:43)
[2020-09-13] MEDS: Cefepime 2 GM in Dextrose 2 GM/50 ML BAG IV SCH ×3 (01:18→17:54)
[2020-09-13] MEDS: metroNIDAZOLE IV 500 MG/100ML 500 MG/100 ML BAG IVPB SCH ×3 (02:43→18:52)
[2020-09-13] MEDS: VANCOMYCIN 1250 MG IVPB SCH ×3 (04:34→20:42)
[2020-09-13] MEDS: Heparin 5000 UNITS/ML 1 mL VIAL SUBCUT SCH ×3 (06:18→22:41)
[2020-09-13 06:21] LABS: Hematocrit 28 % (35-47); Mean Corpuscular HGB Conc 33 g/dL (31-36); Mean Corpuscular Hemoglobin 31 pg (27-31); Mean Corpuscular Volume 93 fL (80-97); Mean Platelet Volume 6.9 fL (7.4-10.4); Platelet Count 719 10^3/uL (150-450); Red Blood Count 2.97 10^6 /uL (3.70-4.87); Red Cell Distribution Width 14 % (10-15); White Blood Count 20.2 10^3/uL (3.5-10.8)
[2020-09-13 06:22] LABS: ABS Basophils 0.1 10^3/ul (0-0.2); ABS Eosinophils 0.1 10^3/ul (0-0.6); ABS Lymphocytes 1.6 10^3/ul (1.0-4.8); ABS Monocytes 1.7 10^3/ul (0-0.8); ABS Neutrophils 16.7 10^3/ul (1.5-7.7); Eosinophil % 0.7 %; Lymphocyte % 7.8 %
[2020-09-13 06:33] LABS: BUN/Creatinine Ratio 11.3 (8-20); Calcium 7.7 mg/dL (8.6-10.3); EGFR African American 141.4 (>60); EGFR Non-African American 116.9 (>60); Magnesium 2.1 mg/dL (1.9-2.7); Potassium 3.9 mmol/L (3.5-5.0)
[2020-09-13 08:06] LABS: C Reactive Protein 229.95 mg/L (<8.01)
[2020-09-13] MEDS: Potassium Chloride LIQUID 20 MEQ/15 ML LIQUID PO SCH ×2 (09:06→20:45)
[2020-09-13 14:57] LABS: Body Fluid Source Pleural Fluid
[2020-09-13] MEDS ORDERED: Furosemide 20 mg/2 ml IV VIAL IV SLOW PU ONE (17:29)
[2020-09-13 22:16] LABS: Body Fluid Mono 1 %
[2020-09-14] MEDS: Cefepime 2 GM in Dextrose 2 GM/50 ML BAG IV SCH ×3 (00:28→22:48)
[2020-09-14] MEDS: metroNIDAZOLE IV 500 MG/100ML 500 MG/100 ML BAG IVPB SCH ×3 (01:14→18:24)
[2020-09-14] MEDS: Heparin 5000 UNITS/ML 1 mL VIAL SUBCUT SCH ×3 (06:08→22:59)
[2020-09-14] MEDS: VANCOMYCIN 1250 MG IVPB SCH ×2 (06:08→15:12)
[2020-09-14 06:16] LABS: Hematocrit 26 % (35-47); Hemoglobin 8.4 g/dL (12.0-16.0); Mean Corpuscular HGB Conc 33 g/dL (31-36); Mean Corpuscular Hemoglobin 31 pg (27-31); Mean Corpuscular Volume 94 fL (80-97); Mean Platelet Volume 6.7 fL (7.4-10.4); Platelet Count 721 10^3/uL (150-450); Red Blood Count 2.72 10^6 /uL (3.70-4.87); Red Cell Distribution Width 14 % (10-15); White Blood Count 16.1 10^3/uL (3.5-10.8)
[2020-09-14 08:10] LABS: Total Protein 6.4 g/dL (6.4-8.9)
[2020-09-14] MEDS: Potassium Chloride LIQUID 20 MEQ/15 ML LIQUID PO SCH ×2 (08:45→22:54)
[2020-09-14] MEDS ORDERED: Cefepime 2 GM in Dextrose 2 GM/50 ML BAG IV SCH (11:00)
[2020-09-14] MEDS ORDERED: Vancomycin Trough Check NOTE FOLLOW UP ONE (12:00)
[2020-09-14] MEDS ORDERED: Perflutren Lipid Microsphere 3 ML VIAL ONE (12:02)
[2020-09-14 13:02] LABS: EGFR African American 144.6 (>60); EGFR Non-African American 119.5 (>60)
[2020-09-14 13:17] LABS: Vancomycin Trough 21.5 mcg/mL
[2020-09-14 14:10] LABS: ABS Basophils 0.1 10^3/ul (0-0.2); ABS Eosinophils 0.1 10^3/ul (0-0.6); ABS Lymphocytes 1.4 10^3/ul (1.0-4.8); ABS Monocytes 1.6 10^3/ul (0-0.8); ABS Neutrophils 12.9 10^3/ul (1.5-7.7); Eosinophil % 0.7 %; Lymphocyte % 8.7 %; Nucleated Red Blood Cells % 0.1
[2020-09-14] MEDS ORDERED: Saline NASAL SPRAY 0.65% BTL BOTH NARES PRN (14:34)
[2020-09-15] MEDS: metroNIDAZOLE IV 500 MG/100ML 500 MG/100 ML BAG IVPB SCH ×3 (01:29→17:25)
[2020-09-15] MEDS ORDERED: Vancomycin 1,250 MG in NS 0.9% 250 ml 250 ML IVPB SCH (02:00)
[2020-09-15] MEDS: Heparin 5000 UNITS/ML 1 mL VIAL SUBCUT SCH ×3 (05:27→20:59)
[2020-09-15] MEDS: Cefepime 2 GM in Dextrose 2 GM/50 ML BAG IV SCH ×3 (05:33→20:59)
[2020-09-15 08:04] LABS: Hematocrit 29 % (35-47); Hemoglobin 9.3 g/dL (12.0-16.0); Mean Corpuscular HGB Conc 33 g/dL (31-36); Mean Corpuscular Hemoglobin 32 pg (27-31); Mean Corpuscular Volume 98 fL (80-97); Platelet Count 653 10^3/uL (150-450); Red Blood Count 2.91 10^6 /uL (3.70-4.87); Red Cell Distribution Width 15 % (10-15); White Blood Count 14.5 10^3/uL (3.5-10.8)
[2020-09-15 08:17] LABS: Albumin 2.9 g/dL (3.2-5.2); Calcium 7.7 mg/dL (8.6-10.3); Potassium 4.4 mmol/L (3.5-5.0); Total Bilirubin 0.5 mg/dL (0.2-1.0)
[2020-09-15 08:23] LABS: Albumin/Globulin Ratio 0.9 (1-3); BUN/Creatinine Ratio 10.4 (8-20); EGFR African American 158.6 (>60); Globulin 3.3 g/dL (2-4); Total Protein 6.2 g/dL (6.4-8.9)
[2020-09-15 08:51] LABS: ABS Basophils 0.1 10^3/ul (0-0.2); ABS Eosinophils 0.1 10^3/ul (0-0.6); ABS Lymphocytes 1.4 10^3/ul (1.0-4.8); ABS Monocytes 1.5 10^3/ul (0-0.8); ABS Neutrophils 11.5 10^3/ul (1.5-7.7); Eosinophil % 0.9 %; Lymphocyte % 9.3 %; Polychromasia 2+
[2020-09-15] MEDS: Potassium Chloride LIQUID 20 MEQ/15 ML LIQUID PO SCH ×2 (08:51→20:55)
[2020-09-15 14:13] LABS: Lactate Dehydrogenase, BF 801 U/L
[2020-09-15] MEDS: Fluconazole 200 MG IVPREMIX 200 MG/100 ML BAG IVPB SCH (19:42)
[2020-09-16] MEDS: metroNIDAZOLE IV 500 MG/100ML 500 MG/100 ML BAG IVPB SCH ×3 (02:25→19:36)
[2020-09-16] MEDS: Cefepime 2 GM in Dextrose 2 GM/50 ML BAG IV SCH ×2 (04:29→18:08)
[2020-09-16] MEDS: Heparin 5000 UNITS/ML 1 mL VIAL SUBCUT SCH ×3 (05:16→21:21)
[2020-09-16 05:54] LABS: Hematocrit 27 % (35-47); Mean Corpuscular HGB Conc 33 g/dL (31-36); Mean Corpuscular Hemoglobin 31 pg (27-31); Mean Corpuscular Volume 94 fL (80-97); Mean Platelet Volume 6.5 fL (7.4-10.4); Platelet Count 894 10^3/uL (150-450); Red Blood Count 2.92 10^6 /uL (3.70-4.87); Red Cell Distribution Width 14 % (10-15); White Blood Count 19.3 10^3/uL (3.5-10.8)
[2020-09-16 06:50] LABS: ABS Basophils 0.1 10^3/ul (0-0.2); ABS Eosinophils 0.1 10^3/ul (0-0.6); ABS Lymphocytes 1.6 10^3/ul (1.0-4.8); ABS Monocytes 1.9 10^3/ul (0-0.8); ABS Neutrophils 15.5 10^3/ul (1.5-7.7); Eosinophil % 0.6 %; Lymphocyte % 8.5 %
[2020-09-16 10:11] LABS: Fluid Type, Glucose PLEURAL; Glucose, BF 103 mg/dL
[2020-09-16 10:12] LABS: Albumin, BF 1.9 g/dL; Fluid Type, Albumin PLEURAL
[2020-09-16 10:14] LABS: Fluid Type, Protein, Total PLEURAL
[2020-09-16] MEDS: Potassium Chloride LIQUID 20 MEQ/15 ML LIQUID PO SCH ×2 (10:26→21:21)
[2020-09-16] MEDS ORDERED: Vancomycin per Pharmacy 1 EA NOTE FOLLOW UP PRN (11:06)
[2020-09-16] MEDS ORDERED: Vancomycin 1,500 MG in NS 0.9% 250 ml 250 ML IVPB ONE (11:30)
[2020-09-16] MEDS ORDERED: fentaNYL 100 mcg/2 ml 50 MCG/ML VIAL ONE (12:07)
[2020-09-16 12:15] LABS: Activated Partial Thrombo Time 29.8 seconds (26.0-38.0); INR 1.35 (0.82-1.09)
[2020-09-16] MEDS: Fluconazole 200 MG IVPREMIX 200 MG/100 ML BAG IVPB SCH (21:16)
[2020-09-16] MEDS: Vancomycin 1000 MG in NS 0.9% 250 ML IVPB SCH (22:40)
[2020-09-17] MEDS: metroNIDAZOLE IV 500 MG/100ML 500 MG/100 ML BAG IVPB SCH ×2 (02:07→09:57)
[2020-09-17] MEDS: Cefepime 2 GM in Dextrose 2 GM/50 ML BAG IV SCH ×2 (04:28→17:04)
[2020-09-17 05:33] LABS: Hematocrit 27 % (35-47); Hemoglobin 8.8 g/dL (12.0-16.0); Mean Corpuscular HGB Conc 33 g/dL (31-36); Mean Corpuscular Hemoglobin 31 pg (27-31); Mean Corpuscular Volume 94 fL (80-97); Mean Platelet Volume 6.5 fL (7.4-10.4); Platelet Count 710 10^3/uL (150-450); Red Blood Count 2.88 10^6 /uL (3.70-4.87); Red Cell Distribution Width 14 % (10-15); White Blood Count 13.5 10^3/uL (3.5-10.8)
[2020-09-17] MEDS: Heparin 5000 UNITS/ML 1 mL VIAL SUBCUT SCH ×3 (05:33→21:52)
[2020-09-17] MEDS: Vancomycin 1000 MG in NS 0.9% 250 ML IVPB SCH ×3 (05:33→23:01)
[2020-09-17 05:48] LABS: Albumin 2.9 g/dL (3.2-5.2); Albumin/Globulin Ratio 0.9 (1-3); BUN/Creatinine Ratio 10.7 (8-20); Calcium 7.9 mg/dL (8.6-10.3); EGFR African American 132.7 (>60); EGFR Non-African American 109.7 (>60); Globulin 3.4 g/dL (2-4); Potassium 3.8 mmol/L (3.5-5.0); Total Bilirubin 0.5 mg/dL (0.2-1.0); Total Protein 6.3 g/dL (6.4-8.9)
[2020-09-17 05:58] LABS: ABS Basophils 0.2 10^3/ul (0-0.2); ABS Eosinophils 0.2 10^3/ul (0-0.6); ABS Lymphocytes 1.2 10^3/ul (1.0-4.8); ABS Monocytes 1.4 10^3/ul (0-0.8); ABS Neutrophils 10.6 10^3/ul (1.5-7.7); Eosinophil % 1.3 %; Lymphocyte % 8.7 %
[2020-09-17] MEDS: Potassium Chloride LIQUID 20 MEQ/15 ML LIQUID PO SCH ×2 (09:57→21:48)
[2020-09-17] MEDS ORDERED: Buffered Lidocaine 1% SYRIN 1 ml INTRADERM ONE ×2 (11:11→11:41)
[2020-09-17] MEDS ORDERED: Vancomycin Trough Check NOTE FOLLOW UP ONE ×2 (13:30)
[2020-09-17] MEDS: Benzocaine/Menthol LOZ MT PRN (15:26)
[2020-09-17] MEDS: Fluconazole 200 MG IVPREMIX 200 MG/100 ML BAG IVPB SCH (21:49)
[2020-09-18] MEDS: Cefepime 2 GM in Dextrose 2 GM/50 ML BAG IV SCH ×2 (05:34→16:09)
[2020-09-18] MEDS: Vancomycin 1000 MG in NS 0.9% 250 ML IVPB SCH ×3 (05:41→22:18)
[2020-09-18] MEDS: Heparin 5000 UNITS/ML 1 mL VIAL SUBCUT SCH ×3 (05:44→21:20)
[2020-09-18] MEDS: Potassium Chloride LIQUID 20 MEQ/15 ML LIQUID PO SCH ×2 (09:52→21:18)
[2020-09-18 17:46] LABS: Hematocrit 28 % (35-47); Hemoglobin 9.2 g/dL (12.0-16.0); Mean Corpuscular HGB Conc 33 g/dL (31-36); Mean Corpuscular Hemoglobin 31 pg (27-31); Mean Corpuscular Volume 94 fL (80-97); Platelet Count 740 10^3/uL (150-450); Red Blood Count 2.99 10^6 /uL (3.70-4.87); Red Cell Distribution Width 15 % (10-15); White Blood Count 12.1 10^3/uL (3.5-10.8)
[2020-09-18 18:00] LABS: BUN/Creatinine Ratio 7.1 (8-20); C Reactive Protein 138.18 mg/L (<8.01); Calcium 8.3 mg/dL (8.6-10.3); EGFR African American 132.7 (>60); EGFR Non-African American 109.7 (>60)
[2020-09-18 18:18] LABS: ABS Basophils 0.1 10^3/ul (0-0.2); ABS Eosinophils 0.2 10^3/ul (0-0.6); ABS Lymphocytes 1.4 10^3/ul (1.0-4.8); ABS Monocytes 1.4 10^3/ul (0-0.8); Eosinophil % 1.9 %; Lymphocyte % 11.8 %
[2020-09-18] MEDS: Fluconazole 200 MG IVPREMIX 200 MG/100 ML BAG IVPB SCH (21:13)
[2020-09-19] MEDS: Cefepime 2 GM in Dextrose 2 GM/50 ML BAG IV SCH ×2 (04:52→16:20)
[2020-09-19] MEDS: Heparin 5000 UNITS/ML 1 mL VIAL SUBCUT SCH ×3 (05:04→21:42)
[2020-09-19 05:17] LABS: ABS Basophils 0.1 10^3/ul (0-0.2); ABS Eosinophils 0.2 10^3/ul (0-0.6); ABS Lymphocytes 1.1 10^3/ul (1.0-4.8); ABS Monocytes 1.3 10^3/ul (0-0.8); ABS Neutrophils 8.6 10^3/ul (1.5-7.7); Eosinophil % 1.6 %; Hematocrit 26 % (35-47); Hemoglobin 8.6 g/dL (12.0-16.0); Lymphocyte % 9.8 %; Mean Corpuscular HGB Conc 33 g/dL (31-36); Mean Corpuscular Hemoglobin 31 pg (27-31); Mean Corpuscular Volume 93 fL (80-97); Mean Platelet Volume 6.4 fL (7.4-10.4); Platelet Count 617 10^3/uL (150-450); Red Blood Count 2.81 10^6 /uL (3.70-4.87); Red Cell Distribution Width 14 % (10-15); White Blood Count 11.2 10^3/uL (3.5-10.8)
[2020-09-19] MEDS: Vancomycin 1000 MG in NS 0.9% 250 ML IVPB SCH ×3 (05:34→21:38)
[2020-09-19 05:35] LABS: Calcium 8.1 mg/dL (8.6-10.3); EGFR African American 151.3 (>60); Potassium 4.1 mmol/L (3.5-5.0)
[2020-09-19] MEDS: Potassium Chloride LIQUID 20 MEQ/15 ML LIQUID PO SCH ×2 (09:59→20:15)
[2020-09-19] MEDS: guaiFENesin 100 mg/5 ml LIQ unit dose cup PO PRN ×2 (16:29→21:40)
[2020-09-19] MEDS: Fluconazole 200 MG IVPREMIX 200 MG/100 ML BAG IVPB SCH (20:13)
[2020-09-19] MEDS: Ondansetron 4 mg VIAL 2 MG/ML 2 ml VIAL IV PRN (23:57)
[2020-09-20] MEDS: Cefepime 2 GM in Dextrose 2 GM/50 ML BAG IV SCH ×2 (05:08→16:55)
[2020-09-20] MEDS ORDERED: Vancomycin Trough Check NOTE FOLLOW UP ONE (05:30)
[2020-09-20] MEDS: Heparin 5000 UNITS/ML 1 mL VIAL SUBCUT SCH ×3 (05:41→22:10)
[2020-09-20 07:36] LABS: Hematocrit 28 % (35-47); Hemoglobin 9.4 g/dL (12.0-16.0); Mean Corpuscular HGB Conc 34 g/dL (31-36); Mean Corpuscular Hemoglobin 31 pg (27-31); Mean Corpuscular Volume 93 fL (80-97); Mean Platelet Volume 5.9 fL (7.4-10.4); Platelet Count 542 10^3/uL (150-450); Red Blood Count 2.99 10^6 /uL (3.70-4.87); Red Cell Distribution Width 15 % (10-15); White Blood Count 10.8 10^3/uL (3.5-10.8)
[2020-09-20 07:46] LABS: EGFR African American 132.7 (>60); EGFR Non-African American 109.7 (>60)
[2020-09-20 07:59] LABS: Vancomycin Trough 12.4 mcg/mL
[2020-09-20] MEDS: Vancomycin 1000 MG in NS 0.9% 250 ML IVPB SCH ×2 (08:24→16:55)
[2020-09-20] MEDS: Potassium Chloride LIQUID 20 MEQ/15 ML LIQUID PO SCH ×2 (08:39→22:07)
[2020-09-20] MEDS: guaiFENesin 100 mg/5 ml LIQ unit dose cup PO PRN ×3 (08:39→19:42)
[2020-09-20 08:47] LABS: ABS Basophils 0.1 10^3/ul (0-0.2); ABS Eosinophils 0.2 10^3/ul (0-0.6); ABS Lymphocytes 1.4 10^3/ul (1.0-4.8); ABS Monocytes 1.3 10^3/ul (0-0.8); ABS Neutrophils 7.9 10^3/ul (1.5-7.7); Eosinophil % 1.7 %; Lymphocyte % 12.7 %; Polychromasia 1+
[2020-09-20 13:52] LABS: INR 1.24 (0.82-1.09)
[2020-09-20] MEDS: Fluconazole 400 MG IVPREMIX 400 MG/200 ML BAG IVPB SCH (22:08)
[2020-09-20] MEDS: Fluconazole 200 MG IVPREMIX 200 MG/100 ML BAG IVPB SCH ×2 (22:09→22:29)
[2020-09-21] MEDS: guaiFENesin 100 mg/5 ml LIQ unit dose cup PO PRN ×3 (00:40→09:56)
[2020-09-21] MEDS: Benzocaine/Menthol LOZ MT PRN ×4 (00:41→22:24)
[2020-09-21] MEDS: Vancomycin 1000 MG in NS 0.9% 250 ML IVPB SCH ×3 (00:41→19:41)
[2020-09-21] MEDS: Cefepime 2 GM in Dextrose 2 GM/50 ML BAG IV SCH ×2 (05:29→19:42)
[2020-09-21] MEDS: Heparin 5000 UNITS/ML 1 mL VIAL SUBCUT SCH ×3 (05:30→22:08)
[2020-09-21] MEDS: Potassium Chloride LIQUID 20 MEQ/15 ML LIQUID PO SCH ×2 (09:33→22:10)
[2020-09-21] MEDS: Fluconazole 400 MG IVPREMIX 400 MG/200 ML BAG IVPB SCH (22:10)
[2020-09-22] MEDS: Vancomycin 1000 MG in NS 0.9% 250 ML IVPB SCH ×3 (00:43→17:53)
[2020-09-22] MEDS: Cefepime 2 GM in Dextrose 2 GM/50 ML BAG IV SCH ×2 (04:43→16:48)
[2020-09-22 04:51] LABS: ABS Eosinophils 0.2 10^3/ul (0-0.6); ABS Lymphocytes 1.2 10^3/ul (1.0-4.8); ABS Monocytes 0.9 10^3/ul (0-0.8); ABS Neutrophils 8.6 10^3/ul (1.5-7.7); Eosinophil % 2.1 %; Hematocrit 24 % (35-47); Hemoglobin 8.3 g/dL (12.0-16.0); Lymphocyte % 11.3 %; Mean Corpuscular HGB Conc 34 g/dL (31-36); Mean Corpuscular Hemoglobin 31 pg (27-31); Mean Corpuscular Volume 93 fL (80-97); Mean Platelet Volume 5.8 fL (7.4-10.4); Platelet Count 401 10^3/uL (150-450); Red Blood Count 2.63 10^6 /uL (3.70-4.87); Red Cell Distribution Width 15 % (10-15)
[2020-09-22 05:10] LABS: Albumin 2.8 g/dL (3.2-5.2); Albumin/Globulin Ratio 0.8 (1-3); BUN/Creatinine Ratio 15.1 (8-20); Calcium 7.8 mg/dL (8.6-10.3); EGFR African American 141.4 (>60); EGFR Non-African American 116.9 (>60); Globulin 3.5 g/dL (2-4); Potassium 4.1 mmol/L (3.5-5.0); Total Bilirubin 0.3 mg/dL (0.2-1.0); Total Protein 6.3 g/dL (6.4-8.9)
[2020-09-22] MEDS: Heparin 5000 UNITS/ML 1 mL VIAL SUBCUT SCH ×3 (05:43→21:45)
[2020-09-22] MEDS: Potassium Chloride LIQUID 20 MEQ/15 ML LIQUID PO SCH ×2 (09:09→20:32)
[2020-09-22] MEDS: Alteplase (CATHFLO) 10 MG in NS 0.9% 50 ML 40 ML INTRAPLEUR SCH ×2 (13:47→21:30)
[2020-09-22] MEDS: DORNASE ALFA 1 mg/ml(NF) 5 MG in NS 0.9% 50 ML 45 ML INTRAPLEUR SCH ×2 (13:50→21:31)
[2020-09-22] MEDS: guaiFENesin 100 mg/5 ml LIQ unit dose cup PO PRN (15:17)
[2020-09-22 18:04] LABS: C Reactive Protein 79.91 mg/L (<8.01)
[2020-09-22] MEDS: Fluconazole 400 MG IVPREMIX 400 MG/200 ML BAG IVPB SCH (20:32)
[2020-09-23] MEDS: Ondansetron 4 mg VIAL 2 MG/ML 2 ml VIAL IV PRN (04:04)
[2020-09-23] MEDS: Heparin 5000 UNITS/ML 1 mL VIAL SUBCUT SCH ×3 (05:41→21:48)
[2020-09-23 08:13] LABS: Hematocrit 29 % (35-47); Hemoglobin 9.6 g/dL (12.0-16.0); Mean Corpuscular HGB Conc 33 g/dL (31-36); Mean Corpuscular Hemoglobin 31 pg (27-31); Mean Corpuscular Volume 94 fL (80-97); Mean Platelet Volume 6.1 fL (7.4-10.4); Platelet Count 442 10^3/uL (150-450); Red Blood Count 3.06 10^6 /uL (3.70-4.87); Red Cell Distribution Width 15 % (10-15); White Blood Count 11.2 10^3/uL (3.5-10.8)
[2020-09-23 08:23] LABS: BUN/Creatinine Ratio 14.3 (8-20); Calcium 8.6 mg/dL (8.6-10.3); EGFR African American 154.8 (>60); Potassium 3.9 mmol/L (3.5-5.0)
[2020-09-23] MEDS ORDERED: Vancomycin Trough Check NOTE FOLLOW UP ONE (08:30)
[2020-09-23] MEDS: Potassium Chloride LIQUID 20 MEQ/15 ML LIQUID PO SCH ×2 (09:03→21:47)
[2020-09-23] MEDS: guaiFENesin 100 mg/5 ml LIQ unit dose cup PO PRN ×4 (09:41→23:50)
[2020-09-23] MEDS: Alteplase (CATHFLO) 10 MG in NS 0.9% 50 ML 40 ML INTRAPLEUR SCH (11:49)
[2020-09-23] MEDS: DORNASE ALFA 1 mg/ml(NF) 5 MG in NS 0.9% 50 ML 45 ML INTRAPLEUR SCH (11:50)
[2020-09-23] MEDS: Fluconazole 400 MG IVPREMIX 400 MG/200 ML BAG IVPB SCH (21:49)
[2020-09-24] MEDS: Heparin 5000 UNITS/ML 1 mL VIAL SUBCUT SCH ×3 (05:27→22:54)
[2020-09-24] MEDS: DORNASE ALFA 1 mg/ml(NF) 5 MG in NS 0.9% 50 ML 45 ML INTRAPLEUR SCH (06:53)
[2020-09-24] MEDS: Alteplase (CATHFLO) 10 MG in NS 0.9% 50 ML 40 ML INTRAPLEUR SCH (06:53)
[2020-09-24 08:16] LABS: ABS Basophils 0.1 10^3/ul (0-0.2); ABS Eosinophils 0.3 10^3/ul (0-0.6); ABS Lymphocytes 1.8 10^3/ul (1.0-4.8); ABS Monocytes 0.7 10^3/ul (0-0.8); ABS Neutrophils 9.5 10^3/ul (1.5-7.7); Eosinophil % 2.3 %; Hematocrit 29 % (35-47); Hemoglobin 9.5 g/dL (12.0-16.0); Lymphocyte % 14.6 %; Mean Corpuscular HGB Conc 33 g/dL (31-36); Mean Corpuscular Hemoglobin 31 pg (27-31); Mean Corpuscular Volume 94 fL (80-97); Mean Platelet Volume 6.2 fL (7.4-10.4); Nucleated Red Blood Cells % 0.1; Platelet Count 446 10^3/uL (150-450); Red Blood Count 3.07 10^6 /uL (3.70-4.87); Red Cell Distribution Width 15 % (10-15); White Blood Count 12.3 10^3/uL (3.5-10.8)
[2020-09-24 09:19] LABS: Calcium 8.8 mg/dL (8.6-10.3); Potassium 4.2 mmol/L (3.5-5.0)
[2020-09-24 09:27] LABS: BUN/Creatinine Ratio 15.4 (8-20); EGFR African American 144.6 (>60); EGFR Non-African American 119.5 (>60)
[2020-09-24] MEDS: guaiFENesin 100 mg/5 ml LIQ unit dose cup PO PRN ×3 (09:41→18:21)
[2020-09-24] MEDS: Potassium Chloride LIQUID 20 MEQ/15 ML LIQUID PO SCH ×2 (09:42→22:54)
[2020-09-24] MEDS: Benzocaine/Menthol LOZ MT PRN (20:01)
[2020-09-24] MEDS: Fluconazole 400 MG IVPREMIX 400 MG/200 ML BAG IVPB SCH (22:54)
[2020-09-25] MEDS: Heparin 5000 UNITS/ML 1 mL VIAL SUBCUT SCH ×3 (05:22→21:11)
[2020-09-25 08:18] LABS: ABS Basophils 0.1 10^3/ul (0-0.2); ABS Eosinophils 0.3 10^3/ul (0-0.6); ABS Lymphocytes 1.7 10^3/ul (1.0-4.8); ABS Monocytes 0.8 10^3/ul (0-0.8); ABS Neutrophils 8.5 10^3/ul (1.5-7.7); Eosinophil % 2.5 %; Hematocrit 30 % (35-47); Lymphocyte % 15.3 %; Mean Corpuscular HGB Conc 33 g/dL (31-36); Mean Corpuscular Hemoglobin 31 pg (27-31); Mean Corpuscular Volume 93 fL (80-97); Mean Platelet Volume 6.1 fL (7.4-10.4); Platelet Count 438 10^3/uL (150-450); Red Blood Count 3.26 10^6 /uL (3.70-4.87); Red Cell Distribution Width 15 % (10-15); White Blood Count 11.4 10^3/uL (3.5-10.8)
[2020-09-25 08:29] LABS: BUN/Creatinine Ratio 15.4 (8-20); Calcium 8.8 mg/dL (8.6-10.3); EGFR African American 144.6 (>60); EGFR Non-African American 119.5 (>60); Potassium 4.1 mmol/L (3.5-5.0)
[2020-09-25] MEDS: Potassium Chloride LIQUID 20 MEQ/15 ML LIQUID PO SCH ×2 (08:57→21:11)
[2020-09-25] MEDS: Benzocaine/Menthol LOZ MT PRN ×2 (15:19→21:11)
[2020-09-25] MEDS: Fluconazole 400 MG IVPREMIX 400 MG/200 ML BAG IVPB SCH (21:13)
[2020-09-26] MEDS: Heparin 5000 UNITS/ML 1 mL VIAL SUBCUT SCH ×3 (05:41→21:48)
[2020-09-26] MEDS: Benzocaine/Menthol LOZ MT PRN ×3 (06:01→22:10)
[2020-09-26 06:31] LABS: ABS Basophils 0.1 10^3/ul (0-0.2); ABS Eosinophils 0.2 10^3/ul (0-0.6); ABS Lymphocytes 1.6 10^3/ul (1.0-4.8); ABS Monocytes 0.8 10^3/ul (0-0.8); ABS Neutrophils 8.9 10^3/ul (1.5-7.7); Hematocrit 31 % (35-47); Hemoglobin 10.1 g/dL (12.0-16.0); Lymphocyte % 13.4 %; Mean Corpuscular HGB Conc 33 g/dL (31-36); Mean Corpuscular Hemoglobin 31 pg (27-31); Mean Corpuscular Volume 94 fL (80-97); Mean Platelet Volume 6.2 fL (7.4-10.4); Platelet Count 456 10^3/uL (150-450); Red Cell Distribution Width 15 % (10-15); White Blood Count 11.6 10^3/uL (3.5-10.8)
[2020-09-26 06:48] LABS: BUN/Creatinine Ratio 16.4 (8-20); Calcium 8.9 mg/dL (8.6-10.3); EGFR African American 135.5 (>60); Potassium 4.2 mmol/L (3.5-5.0)
[2020-09-26] MEDS: Potassium Chloride LIQUID 20 MEQ/15 ML LIQUID PO SCH ×2 (10:06→21:48)
[2020-09-26] MEDS: guaiFENesin 100 mg/5 ml LIQ unit dose cup PO PRN ×2 (10:12→22:10)
[2020-09-26] MEDS: Fluconazole 400 MG IVPREMIX 400 MG/200 ML BAG IVPB SCH (21:50)
[2020-09-27 07:12] LABS: ABS Basophils 0.1 10^3/ul (0-0.2); ABS Eosinophils 0.2 10^3/ul (0-0.6); ABS Lymphocytes 1.3 10^3/ul (1.0-4.8); ABS Monocytes 0.9 10^3/ul (0-0.8); ABS Neutrophils 7.9 10^3/ul (1.5-7.7); Eosinophil % 1.8 %; Hematocrit 31 % (35-47); Hemoglobin 10.1 g/dL (12.0-16.0); Lymphocyte % 12.9 %; Mean Corpuscular HGB Conc 33 g/dL (31-36); Mean Corpuscular Hemoglobin 31 pg (27-31); Mean Corpuscular Volume 93 fL (80-97); Mean Platelet Volume 6.1 fL (7.4-10.4); Platelet Count 466 10^3/uL (150-450); Red Blood Count 3.31 10^6 /uL (3.70-4.87); Red Cell Distribution Width 15 % (10-15); White Blood Count 10.3 10^3/uL (3.5-10.8)
[2020-09-27 07:38] LABS: BUN/Creatinine Ratio 16.4 (8-20); Calcium 9.2 mg/dL (8.6-10.3); EGFR African American 120.3 (>60); EGFR Non-African American 99.4 (>60); Potassium 4.7 mmol/L (3.5-5.0)
[2020-09-27] MEDS: Potassium Chloride LIQUID 20 MEQ/15 ML LIQUID PO SCH ×2 (08:11→20:04)
[2020-09-27 08:25] LABS: C Reactive Protein 105.12 mg/L (<8.01)
[2020-09-27] MEDS ORDERED: fentaNYL 100 mcg/2 ml 50 MCG/ML VIAL ONE (10:10)
[2020-09-27] MEDS: Fluconazole 400 MG IVPREMIX 400 MG/200 ML BAG IVPB SCH (20:04)
[2020-09-27] MEDS: Benzocaine/Menthol LOZ MT PRN (23:02)
[2020-09-28] MEDS: Potassium Chloride LIQUID 20 MEQ/15 ML LIQUID PO SCH ×2 (08:33→19:49)
[2020-09-28] MEDS ORDERED: fentaNYL 100 mcg/2 ml 50 MCG/ML VIAL ONE (14:17)
[2020-09-28] MEDS ORDERED: DORNASE ALFA 1 mg/ml(NF) 5 MG in NS 0.9% 50 ML 45 ML INTRAPLEUR SCH (17:00)
[2020-09-28] MEDS ORDERED: Alteplase (CATHFLO) 10 MG in NS 0.9% 50 ML 40 ML INTRAPLEUR ONE (17:00)
[2020-09-28] MEDS ORDERED: Alteplase (CATHFLO) 10 MG in NS 0.9% 50 ML 40 ML INTRAPLEUR SCH (17:00)
[2020-09-28] MEDS: Fluconazole 400 MG IVPREMIX 400 MG/200 ML BAG IVPB SCH (19:50)
[2020-09-28] MEDS: Heparin 5000 UNITS/ML 1 mL VIAL SUBCUT SCH (22:03)
[2020-09-29] MEDS: Heparin 5000 UNITS/ML 1 mL VIAL SUBCUT SCH ×3 (05:50→21:35)
[2020-09-29] MEDS ORDERED: DORNASE ALFA 1 mg/ml(NF) 5 MG in NS 0.9% 50 ML 45 ML INTRAPLEUR SCH (12:00)
[2020-09-29] MEDS ORDERED: Alteplase (CATHFLO) 10 MG in NS 0.9% 50 ML 40 ML INTRAPLEUR SCH (12:00)
[2020-09-29] MEDS: guaiFENesin 100 mg/5 ml LIQ unit dose cup PO PRN ×2 (13:31→17:54)
[2020-09-29] MEDS: Benzocaine/Menthol LOZ MT PRN (19:37)
[2020-09-29] MEDS: Fluconazole 400 MG IVPREMIX 400 MG/200 ML BAG IVPB SCH (21:17)
[2020-09-29] MEDS: Ondansetron 4 mg VIAL 2 MG/ML 2 ml VIAL IV PRN (22:19)
[2020-09-30 06:10] LABS: BUN/Creatinine Ratio 30.8 (8-20); Calcium 8.8 mg/dL (8.6-10.3); EGFR African American 111.8 (>60); EGFR Non-African American 92.4 (>60); Potassium 4.5 mmol/L (3.5-5.0)
[2020-09-30] MEDS: Heparin 5000 UNITS/ML 1 mL VIAL SUBCUT SCH ×3 (06:29→22:18)
[2020-09-30] MEDS: Benzocaine/Menthol LOZ MT PRN ×2 (06:31→22:17)
[2020-09-30 07:14] LABS: ABS Basophils 0.1 10^3/ul (0-0.2); ABS Eosinophils 0.2 10^3/ul (0-0.6); ABS Monocytes 0.8 10^3/ul (0-0.8); ABS Neutrophils 8.5 10^3/ul (1.5-7.7); Eosinophil % 2.2 %; Hematocrit 29 % (35-47); Hemoglobin 9.6 g/dL (12.0-16.0); Lymphocyte % 9.6 %; Mean Corpuscular HGB Conc 33 g/dL (31-36); Mean Corpuscular Hemoglobin 31 pg (27-31); Mean Corpuscular Volume 93 fL (80-97); Mean Platelet Volume 5.6 fL (7.4-10.4); Platelet Count 389 10^3/uL (150-450); Red Blood Count 3.11 10^6 /uL (3.70-4.87); Red Cell Distribution Width 15 % (10-15); White Blood Count 10.6 10^3/uL (3.5-10.8)
[2020-09-30 11:29] LABS: Albumin 3.3 g/dL (3.2-5.2); Albumin/Globulin Ratio 0.8 (1-3); Globulin 3.9 g/dL (2-4); Indirect Bilirubin 0.1 mg/dL (0.3-1.0); Total Bilirubin 0.3 mg/dL (0.2-1.0); Total Protein 7.2 g/dL (6.4-8.9)
[2020-09-30] MEDS: Fluconazole 400 MG IVPREMIX 400 MG/200 ML BAG IVPB SCH (22:36)
[2020-10-01] MEDS: guaiFENesin 100 mg/5 ml LIQ unit dose cup PO PRN ×3 (04:04→14:26)
[2020-10-01] MEDS: Heparin 5000 UNITS/ML 1 mL VIAL SUBCUT SCH ×3 (06:11→21:11)
[2020-10-01] MEDS: Benzocaine/Menthol LOZ MT PRN ×2 (09:49→16:09)
[2020-10-01 10:43] LABS: C Reactive Protein 130.97 mg/L (<8.01)
[2020-10-01] MEDS: Fluconazole 400 MG IVPREMIX 400 MG/200 ML BAG IVPB SCH (21:11)
[2020-10-02] MEDS: Heparin 5000 UNITS/ML 1 mL VIAL SUBCUT SCH ×3 (05:33→23:37)
[2020-10-02] MEDS: guaiFENesin 100 mg/5 ml LIQ unit dose cup PO PRN ×2 (08:13→23:25)
[2020-10-02] MEDS: Fluconazole 400 MG IVPREMIX 400 MG/200 ML BAG IVPB SCH (23:30)
[2020-10-02] MEDS: Benzocaine/Menthol LOZ MT PRN (23:39)
[2020-10-03 06:13] LABS: ABS Basophils 0.1 10^3/ul (0-0.2); ABS Eosinophils 0.3 10^3/ul (0-0.6); ABS Lymphocytes 1.3 10^3/ul (1.0-4.8); ABS Monocytes 0.7 10^3/ul (0-0.8); ABS Neutrophils 7.4 10^3/ul (1.5-7.7); Eosinophil % 3.4 %; Hematocrit 28 % (35-47); Hemoglobin 9.4 g/dL (12.0-16.0); Lymphocyte % 13.1 %; Mean Corpuscular HGB Conc 33 g/dL (31-36); Mean Corpuscular Hemoglobin 30 pg (27-31); Mean Corpuscular Volume 92 fL (80-97); Mean Platelet Volume 5.7 fL (7.4-10.4); Platelet Count 522 10^3/uL (150-450); Red Blood Count 3.08 10^6 /uL (3.70-4.87); Red Cell Distribution Width 14 % (10-15); White Blood Count 9.8 10^3/uL (3.5-10.8)
[2020-10-03] MEDS: Heparin 5000 UNITS/ML 1 mL VIAL SUBCUT SCH ×3 (06:45→21:35)
[2020-10-03 07:36] LABS: Albumin 3.3 g/dL (3.2-5.2); Albumin/Globulin Ratio 0.9 (1-3); BUN/Creatinine Ratio 18.6 (8-20); C Reactive Protein 121.57 mg/L (<8.01); Calcium 8.7 mg/dL (8.6-10.3); EGFR Non-African American 103.3 (>60); Globulin 3.8 g/dL (2-4); Potassium 3.9 mmol/L (3.5-5.0); Total Bilirubin 0.3 mg/dL (0.2-1.0); Total Protein 7.1 g/dL (6.4-8.9)
[2020-10-03] MEDS: Benzocaine/Menthol LOZ MT PRN ×2 (07:36→16:59)
[2020-10-03] MEDS: guaiFENesin 100 mg/5 ml LIQ unit dose cup PO PRN ×2 (07:36→16:59)
[2020-10-03] MEDS: Fluconazole 400 MG IVPREMIX 400 MG/200 ML BAG IVPB SCH (20:30)
[2020-10-03] MEDS ORDERED: Vancomycin 1,000 MG in NS 0.9% 250 ml 250 ML IVPB ONE (21:33)
[2020-10-03] MEDS: Ondansetron 4 mg VIAL 2 MG/ML 2 ml VIAL IV PRN (21:36)
[2020-10-03] MEDS ORDERED: Vancomycin per Pharmacy 1 EA NOTE FOLLOW UP SCH (22:00)
[2020-10-03] MEDS ORDERED: Vancomycin 2000 MG X 1 dose IVPB ONE (22:00)
[2020-10-03] MEDS ORDERED: Lactated Ringers 1000 ml BAG 1,000 ML IV ONE (22:47)
[2020-10-03 22:52] LABS: ABS Basophils 0.1 10^3/ul (0-0.2); ABS Eosinophils 0.3 10^3/ul (0-0.6); ABS Monocytes 0.6 10^3/ul (0-0.8); ABS Neutrophils 7.8 10^3/ul (1.5-7.7); Eosinophil % 3.1 %; Hematocrit 29 % (35-47); Hemoglobin 9.8 g/dL (12.0-16.0); Lymphocyte % 10.3 %; Mean Corpuscular HGB Conc 34 g/dL (31-36); Mean Corpuscular Hemoglobin 31 pg (27-31); Mean Corpuscular Volume 91 fL (80-97); Mean Platelet Volume 5.9 fL (7.4-10.4); Platelet Count 584 10^3/uL (150-450); Red Blood Count 3.13 10^6 /uL (3.70-4.87); Red Cell Distribution Width 15 % (10-15); White Blood Count 9.8 10^3/uL (3.5-10.8)
[2020-10-03 23:07] LABS: BUN/Creatinine Ratio 21.7 (8-20); EGFR African American 122.6 (>60); EGFR Non-African American 101.3 (>60); Potassium 4.3 mmol/L (3.5-5.0)
[2020-10-03] MEDS: Cefepime 2 GM in Dextrose 2 GM/50 ML BAG IV SCH (23:36)
[2020-10-04] MEDS ORDERED: Iohexol 300 (CONTRAST) 10 ML SDV IV ONE (00:49)
[2020-10-04 01:13] LABS: Urine Appearance Cloudy; Urine Bilirubin Negative (Negative); Urine Blood Negative (Negative); Urine Color Yellow; Urine Glucose Negative (Negative); Urine Ketones Negative (Negative); Urine Nitrite Negative (Negative); Urine Protein Negative (Negative); Urine Specific Gravity 1.004 (1.010-1.030); Urine Urobilinogen Negative (Negative)
[2020-10-04 01:16] LABS: Urine Bacteria 2+ (Absent); Urine Red Blood Cell Trace(0-2/hpf) (Absent); Urine Squamous Epithelial Cell Present (Absent); Urine White Blood Cell 1+(6-10/hpf) (Absent)
[2020-10-04 05:44] LABS: ABS Basophils 0.1 10^3/ul (0-0.2); ABS Eosinophils 0.2 10^3/ul (0-0.6); ABS Lymphocytes 0.8 10^3/ul (1.0-4.8); ABS Monocytes 0.4 10^3/ul (0-0.8); ABS Neutrophils 10.2 10^3/ul (1.5-7.7); Eosinophil % 1.7 %; Hematocrit 30 % (35-47); Hemoglobin 9.8 g/dL (12.0-16.0); Lymphocyte % 6.9 %; Mean Corpuscular HGB Conc 33 g/dL (31-36); Mean Corpuscular Hemoglobin 30 pg (27-31); Mean Corpuscular Volume 91 fL (80-97); Mean Platelet Volume 5.8 fL (7.4-10.4); Platelet Count 584 10^3/uL (150-450); Red Blood Count 3.29 10^6 /uL (3.70-4.87); Red Cell Distribution Width 14 % (10-15); White Blood Count 11.7 10^3/uL (3.5-10.8)
[2020-10-04] MEDS: Heparin 5000 UNITS/ML 1 mL VIAL SUBCUT SCH ×3 (05:46→22:51)
[2020-10-04 05:59] LABS: BUN/Creatinine Ratio 15.6 (8-20); C Reactive Protein 122.37 mg/L (<8.01); Calcium 8.7 mg/dL (8.6-10.3); EGFR African American 113.8 (>60); Potassium 4.4 mmol/L (3.5-5.0)
[2020-10-04] MEDS: guaiFENesin 100 mg/5 ml LIQ unit dose cup PO PRN (07:05)
[2020-10-04] MEDS: Vancomycin 1000 MG in NS 0.9% 250 ML IVPB SCH ×2 (08:39→17:08)
[2020-10-04] MEDS: Benzocaine/Menthol LOZ MT PRN ×2 (08:42→17:12)
[2020-10-04] MEDS: Cefepime 2 GM in Dextrose 2 GM/50 ML BAG IV SCH ×2 (10:29→22:51)
[2020-10-04] MEDS: Ondansetron 4 mg VIAL 2 MG/ML 2 ml VIAL IV PRN (13:36)
[2020-10-04] MEDS: Fluconazole 400 MG IVPREMIX 400 MG/200 ML BAG IVPB SCH (21:04)
[2020-10-05] MEDS: Vancomycin 1000 MG in NS 0.9% 250 ML IVPB SCH ×3 (01:11→16:05)
[2020-10-05] MEDS: Ondansetron 4 mg VIAL 2 MG/ML 2 ml VIAL IV PRN ×2 (02:32→08:57)
[2020-10-05] MEDS: Heparin 5000 UNITS/ML 1 mL VIAL SUBCUT SCH ×2 (06:04→14:27)
[2020-10-05] MEDS ORDERED: Vancomycin Trough Check NOTE FOLLOW UP ONE (08:30)
[2020-10-05] MEDS: guaiFENesin 100 mg/5 ml LIQ unit dose cup PO PRN (08:56)
[2020-10-05] MEDS: Cefepime 2 GM in Dextrose 2 GM/50 ML BAG IV SCH (11:42)
[2020-10-05] MEDS: Benzocaine/Menthol LOZ MT PRN (14:26)
[2020-10-05 16:40] VITALS: BP 128/60
[2020-10-05] MEDS ORDERED: Fluconazole 400 MG IVPREMIX 400 MG/200 ML BAG IVPB SCH (18:00)
[2020-10-07] MEDS ORDERED: Vancomycin Trough Check NOTE FOLLOW UP ONE (08:30)
== END 2020-10-05 19:50 | disposition home or self-care (01) | DRG 353 ==
LOC: OR 09:33 → INTOOBSV 15:13 → SSU 15:13 → OBSVTOIN 15:15 → ICU 09-03 03:37 → SSU 09-07 15:50 → PMRU 09-11 11:44 → SSU 09-11 11:47
PROVIDERS: ADMIT Surgery; ATTEND Surgery